=== PATIENT | female | born 1995 | race Hispanic/Latino ===

== ENCOUNTER 2024-11-17 17:23 | Emergency (ER) | payer OTHER ==
[~2024-11-17] VITALS: Ht 157.5 cm; Wt 99.8 kg
[2024-11-17 17:57] VITALS: PULSE 89; RESP 14; TEMP 98.1; O2SAT 100
== END 2024-11-17 18:28 | disposition home or self-care (01) ==
LOC: ER 17:49
DX: O26.893 Other specified pregnancy related conditions, third trimester (principal); V43.52XA Car driver injured in collision with other type car in traffic accident, initial encounter; Y92.488 Other paved roadways as the place of occurrence of the external cause; E11.9 Type 2 diabetes mellitus without complications
CPT/HCPCS: 99282